=== PATIENT | male | born 1995 | race Caucasian/White ===

== ENCOUNTER 2018-01-14 20:14 | Emergency (ER) | payer OTHER ==
[2018-01-14 20:43] VITALS: BP 128/74; PULSE 84; RESP 18; TEMP 99
--- NOTE | 2018-01-14 21:01 | ED ---
ENT HPI - General Chief complaint: ENT Stated complaint: Sore Throat Time Seen by Provider: 01/14/18 20:54 Source: patient, RN notes reviewed Mode of arrival: ambulatory Limitations: no limitations - History of Present Illness Initial comments: This is a 22-year-old male who presents to the emergency department with chief complaint of sore throat for the past 3 days. Patient states that he has a "infection" in the back of his throat. He states that he has felt warm. He also reports nausea. He states that he has pain with swallowing but denies any difficulty swallowing. He denies runny nose, cough, abdominal pain, chest pain or shortness of breath. Denies any sick contacts. States that he looked in the mirror and saw pus on his tonsils today. - Related Data Home Medications Medication Instructions Recorded Confirmed Acetaminophen-Codeine 300-30mg 1 tab PO Q4H PRN 04/14/17 04/14/17 [Tylenol #3] Ibuprofen [Motrin] 600 mg PO Q8HR PRN 04/14/17 04/14/17 Penicillin V Potassium [Pen Vee K] 500 mg PO QID 04/14/17 04/14/17 Previous Rx's Medication Instructions Recorded Clindamycin [Cleocin] 450 mg PO Q6H #84 capsule 04/14/17 Hydrocodone/Acetaminophen [Pyrites 1 - 2 tab PO Q6HR PRN #10 tab 04/14/17 5-325] Allergies Allergy/AdvReac Type Severity Reaction Status Date / Time No Known Allergies Allergy Verified 01/14/18 20:43 Review of Systems ROS Statement: Those systems with pertinent positive or pertinent negative responses have been documented in the HPI. ROS Other: All systems not noted in ROS Statement are negative. Past Medical History Past Medical History: No Reported History History of Any Multi-Drug Resistant Organisms: None Reported Past Surgical History: No Surgical Hx Reported Past Psychological History: No Psychological Hx Reported Smoking Status: Current every day smoker Past Alcohol Use History: Occasional Past Drug Use History: Marijuana General Exam - General Exam Comments Initial Comments: General: Awake and alert, well-developed; in no apparent distress. Does not appear acutely ill. HEENT: Head atraumatic, normocephalic. Pupils are equal, round and reactive to light. Extraocular movements intact. Oropharynx moist with erythema and bilateral tonsillar exudates. Neck: Supple. Normal ROM. Tender anterior cervical lymphadenopathy. Cardiovascular: Regular rate and rhythm. No murmurs, rubs or gallops. Chest symmetrical. Respiratory: Lungs clear to auscultation bilaterally. No wheezes, rales or rhonchi. Normal respiratory effort with no use of accessory muscles. Musculoskeletal: Normal ROM, no tenderness bilateral upper and lower extremities. Ambulating normally. Skin: [place], warm and dry without rashes or lesions. Neurological: Alert and oriented x3. CN II-XII grossly intact. Speech is fluent and answers are appropriate. No focal neuro deficits. Psychiatric: Normal mood and affect. No overt signs of depression or anxiety noted. Limitations: no limitations Course Vital Signs 01/14/18 20:41 Temperature 99 F Pulse Rate 84 Respiratory 18 Rate Blood Pressure 128/74 O2 Sat by Pulse 97 Oximetry Medical Decision Making - Medical Decision Making This is a 22-year-old male who presents to the emergency department with chief complaint of sore throat. Patient states he has had a sore throat for the past 3 days. On physical examination, oropharynx is mildly erythematous with exudates noted on bilateral tonsils. Rapid strep is negative. Patient's vital signs have been stable and he is afebrile. Likely suffering from a viral pharyngitis. Patient will be discharged home at this time. Recommended oral lozenges and ibuprofen as needed to help with discomfort. Patient is in agreement and voices understanding. All questions answered. - Lab Data Lab Results 01/14/18 Range/Units 21:00 Group A Strep Rapid Negative (Negative) Disposition Clinical Impression: Acute viral pharyngitis Disposition: HOME SELF-CARE Condition: Good Instructions: Pharyngitis (ED) Additional Instructions: Please follow up with primary care provider within 1-2 days. Return to emergency department if symptoms should worsen or any concerns arise. Is patient prescribed a controlled substance at d/c from ED?: No Referrals: None,Stated [Primary Care Provider] - 1-2 days Time of Disposition: 21:30
== END 2018-01-14 21:39 | disposition home or self-care (01) ==
LOC: EC 20:14
DX: J02.9 Acute pharyngitis, unspecified (principal); F17.200 Nicotine dependence, unspecified, uncomplicated
CPT/HCPCS: 87081; 87430; 99283